=== PATIENT | female | born 2000 | race Caucasian/White ===

== ENCOUNTER → 2023-06-19 | Outpatient (CLI) | payer SELFPAY ==
[2023-06-24 21:06] LABS: Chlamydia By Nucleic Acid AMP Negative (Negative); Gonococcus By Nucleic Acid AMP Negative (Negative)
[2023-06-27 20:22] LABS: HPV Reflexed? NOT INDICATED
== END | disposition home or self-care (01) ==
PROVIDERS: Visit Provider Obstetrics & Gynecology
DX: Z34.90 Encounter for supervision of normal pregnancy, unspecified, unspecified trimester (principal)
CPT/HCPCS: 87086; 87491; 87591; 88175; G0145

== ENCOUNTER → 2023-09-17 | Outpatient (CLI) | payer SELFPAY ==
--- NOTE | 2023-09-17 15:37 | US_ITS ---
STUDY: SECOND AND THIRD TRIMESTER OBSTETRICAL ULTRASOUND REASON FOR EXAM: Female, 23 years old anatomy scan LMP: May 04, 2023. TECHNIQUE: Transabdominal and Transvaginal TECHNICAL QUALITY: Adequate. PRIOR ULTRASOUND: None. FINDINGS: There is a single intrauterine fetus. The fetus is in a cephalic presentation. There is demonstrated cardiac activity with a heart rate of 144 bpm. There is a normal amniotic fluid volume. The largest amniotic fluid pocket measures 3.7 cm x 8.1 cm. The amniotic fluid index (SACHIN) is within normal limits. The placenta is anterior in location and is not low lying. There are Grade 0 placental changes. The cervix measures 5.7 cm in length. The adnexal regions are not visualized. BIOMETRY: BPD: 4.8 cm: 20 weeks, 4 days HC: 17.84 sono: 20 weeks, 2 days AC: 14.46 cm: 19 weeks, 5 days FL: 3.17 cm: 19 weeks, 6 days CI: 78.7% FL/BPD: 65.8% FL/HC: FL/AC: 22% HC/AC: 1.23 age by current US: 20 weeks, 0 days. MARKELL by current US: February 04, 2024. Estimated weight: 322 grams, +/- 48 grams, 72 %. Age by LMP: 19 weeks, 3 days. MARKELL by LMP: February 08, 2024. ANATOMY: Gender: Male Cranium: Normal lateral ventricles. Normal choroid plexus. Normal cerebellum. Normal cisterna magna. Normal face, nose and lips. Chest: Normal 4-chamber heart. Abdomen/Pelvis: Normal diaphragm. Normal stomach. Normal abdominal wall. Normal cord insertion. Normal 3 vessel cord. Normal kidneys. Normal bladder. Spine: Limited assessment of the spine due to the position. Extremities: Normal bilateral upper extremities. Normal bilateral lower extremities. IMPRESSION: Single live intrauterine gestation with a mean gestational age of 20 weeks. Limited assessment of the spine due to the position. Follow-up recommended. Electronically Signed: Jay Lee MD at 15:01 EDT , STUDY: FIRST TRIMESTER OBSTETRICAL ULTRASOUND REASON FOR EXAM: Female, 23 years old. Cervical length measurement. LMP: May 04, 2023 TECHNIQUE: Transvaginal FINDINGS: Cervical length measures 5.7 cm. US/OB Anatomy w/ Transvaginal IMPRESSION: Cervical length measures 5.7 cm. Electronically Signed: Jay Lee MD at 15:02 EDT ,
== END | disposition home or self-care (01) ==
LOC: OPUS 15:35
PROVIDERS: Referring Provider Obstetrics & Gynecology; Visit Provider Obstetrics & Gynecology
DX: Z34.00 Encounter for supervision of normal first pregnancy, unspecified trimester (principal)
CPT/HCPCS: 76805; 76817

== ENCOUNTER → 2023-11-03 | Outpatient (CLI) | payer SELFPAY ==
[2023-11-03 08:18] LABS: Absolute Lymphocyte Count 1.45 X10^3/uL (0.83-4.51); Absolute Neutrophil Count 7.1 X10^3/uL (2.0-7.7); Basophil# 0.02 X10^3/uL; Basophil% 0.2 % (0-1); Eosinophil# 0.04 X10^3/uL; Eosinophils% 0.4 % (0-5); Hematocrit 33.2 % (37-47); Hemoglobin 11.2 g/dL (12.0-15.0); Lymphocyte # 1.45 X10^3/ul (0.83-4.51); Lymphocyte % 15.7 % (19-41); Mean Corp Hgb Conc 33.7 g/dL (32-36); Mean Corpuscular Hgb 31.8 pg (27.0-32.0); Mean Corpuscular Volume 94.3 fL (81-99); Mean Platelet Vol. 10.3 fl (6.2-12.0); Monocyte# 0.59 X10^3/uL; Monocyte% 6.4 % (0-10); NRBC Flagged by Analyzer 0 % (0-5); Neutrophil # 7.08 X10^3/uL (2.7-7.7); Neutrophil % 76.9 % (47-70); Platelet Count 222 K/mm3 (150-450); RBC Distribution Width CV 12.8 % (11.6-14.6); Red Blood Count 3.52 M/mm3 (4.2-5.4); White Blood Count 9.2 K/mm3 (4.4-11.0)
[2023-11-03 08:28] LABS: Glucose Challenge Gest 1H 50g 77 mg/dL (70-140)
[2023-11-03 09:07] LABS: HIV - WCH Non-Reactive (Nonreactive); Rubella IgG Reactive (Nonreactive); Syphilis Antibodies Non-reactive
== END | disposition home or self-care (01) ==
PROVIDERS: Registered Nurse; Referring Provider Obstetrics & Gynecology; Visit Provider Obstetrics & Gynecology
DX: Z34.90 Encounter for supervision of normal pregnancy, unspecified, unspecified trimester (principal)
CPT/HCPCS: 36415; 82950; 85025; 86703; 86762; 86780; 86850; 86900; 86901

== ENCOUNTER → 2023-11-13 | Outpatient (CLI) | payer SELFPAY ==
--- NOTE | 2023-11-13 17:55 | US_ITS ---
STUDY: SECOND AND THIRD TRIMESTER OBSTETRICAL ULTRASOUND - LIMITED REASON FOR EXAM: Female, 23 years old wellbeing -- Growth, Complete spinal views LMP: PRIOR ULTRASOUND: 09/17/2023 TECHNIQUE: Transabdominal TECHNICAL QUALITY: Adequate. FINDINGS: There is a single intrauterine fetus. The fetus is in a cephalic presentation. There is demonstrated cardiac activity with a heart rate of 150 bpm. There is increased amniotic fluid volume consistent with polyhydramnios. The largest amniotic fluid pocket measures 7.5 cm. The amniotic fluid index (SACHIN) is 25.5 cm. The placenta is anterior in location and is not low lying. There are Grade 1 placental changes. The cervix measures cm in length. BIOMETRY: BPD: 7.7 cm: 31 weeks, 0 days HC: 27.7 cm: 30 weeks, 2 days AC: 25.1 cm: 29 weeks, 2 days FL: 5.4 cm: 28 weeks, 5 days Age by LMP: 27 weeks, 4 days. MARKELL by LMP: 02/08/2024. age by prior US: weeks, days. MARKELL by prior US: . age by current US: 29 weeks, 4 days. MARKELL by current US: 01/25/2024. Estimated weight: 1394 grams, +/- 209 grams, 95 percentile. Gender: US/OB Limited With Biometrics IMPRESSION: 1. Living intrauterine of 29 weeks 4 days as described above. age is discordant from age by LMP of 27 weeks 4 days suggestive of incorrect dates or macrosomia. 2. Polyhydramnios with an amniotic fluid index of 25.5 cm. Electronically Signed: Jorge Jerome MD at 20:20 EDT ,
== END | disposition home or self-care (01) ==
LOC: OPUS 17:43
PROVIDERS: Referring Provider Nurse Practitioner Women's Health; Visit Provider Nurse Practitioner Women's Health
DX: Z34.90 Encounter for supervision of normal pregnancy, unspecified, unspecified trimester (principal)
CPT/HCPCS: 76816

== ENCOUNTER 2023-11-17 11:15 | Outpatient (CLI) | payer SELFPAY | END 2023-11-17 23:59 | disposition home or self-care (01) | LOC: PAVLAB 11:16 | PROVIDERS: Referring Provider Nurse Practitioner Women's Health; Visit Provider Nurse Practitioner Women's Health | DX: O40.9XX0 Polyhydramnios, unspecified trimester, not applicable or unspecified (principal); Z3A.00 Weeks of gestation of pregnancy not specified | CPT/HCPCS: 36415; 86850; 86900; 86901 ==

== ENCOUNTER → 2023-12-15 | Outpatient (CLI) | payer SELFPAY ==
--- NOTE | 2023-12-15 14:22 | US_ITS ---
STUDY: SECOND AND THIRD TRIMESTER OBSTETRICAL ULTRASOUND - LIMITED REASON FOR EXAM: Female, 23 years old, evaluate SACHIN. LMP: None PRIOR ULTRASOUND: Prior study dated: 11/13/2023 TECHNIQUE: Transabdominal TECHNICAL QUALITY: Adequate. FINDINGS: There is a single intrauterine fetus. The fetus is in a cephalic presentation. There is demonstrated cardiac activity with a heart rate of 135 bpm. There is a normal amniotic fluid volume. The largest amniotic fluid pocket measures 9.2 cm. The amniotic fluid index (SACHIN) is 13.3 cm. The placenta is anterior in location and is not low lying. There are Grade 1 placental changes. The cervix is not visualized. US/OB Limited (No Biometrics) IMPRESSION: 1. Single live intrauterine fetus in cephalic presentation. 2. Normal SACHIN measuring 15.3 cm. Electronically Signed: Dino Marley MD at 10:34 EDT ,
== END | disposition home or self-care (01) ==
PROVIDERS: Referring Provider Obstetrics & Gynecology; Visit Provider Obstetrics & Gynecology
DX: O40.9XX0 Polyhydramnios, unspecified trimester, not applicable or unspecified (principal); Z3A.00 Weeks of gestation of pregnancy not specified
CPT/HCPCS: 76815

== ENCOUNTER → 2023-12-31 | Outpatient (CLI) | payer SELFPAY | END | disposition home or self-care (01) | PROVIDERS: Referring Provider Nurse Practitioner Women's Health; Visit Provider Nurse Practitioner Women's Health | DX: R30.0 Dysuria (principal) | CPT/HCPCS: 87086 ==

== ENCOUNTER → 2024-01-09 | Outpatient (CLI) | payer SELFPAY ==
--- NOTE | 2024-01-09 14:39 | US_ITS ---
STUDY: SECOND AND THIRD TRIMESTER OBSTETRICAL ULTRASOUND - LIMITED REASON FOR EXAM: Female, 23 years old large for gestational age -- polyhyramnious LMP: 05/04/2023 PRIOR ULTRASOUND: 12/15/2023 TECHNIQUE: Transabdominal TECHNICAL QUALITY: Adequate. FINDINGS: There is a single intrauterine fetus. The fetus is in a cephalic presentation. There is demonstrated cardiac activity with a heart rate of 152 bpm. There is a normal amniotic fluid volume. The largest amniotic fluid pocket measures 5.8 cm. The amniotic fluid index (SACHIN) is 18.5 cm. The placenta is anterior in location and is not low lying. There are Grade 2 placental changes. The cervix measures 3.0 cm in length. BIOMETRY: BPD: 9.2 cm: 37 weeks, 3 days HC: 33.3 cm: 38 weeks, 0 days AC: 34.5 cm: 38 weeks, 3 days FL: 7.0 cm: 35 weeks, 5 days Age by LMP: 35 weeks, 5 days. MARKELL by LMP: 02/08/2024. age by prior US: weeks, days. MARKELL by prior US: . age by current US: 36 weeks, 6 days. MARKELL by current US: 01/31/2024. Estimated weight: 3288 grams, +/- 493 grams, 93 percentile. Gender: US/OB Limited With Biometrics IMPRESSION: Living intrauterine of 36 weeks 6 days as described above. Electronically Signed: Jorge Jerome MD at 19:24 EDT ,
== END | disposition home or self-care (01) ==
PROVIDERS: Referring Provider Obstetrics & Gynecology; Visit Provider Obstetrics & Gynecology
DX: O40.9XX0 Polyhydramnios, unspecified trimester, not applicable or unspecified (principal); Z3A.00 Weeks of gestation of pregnancy not specified
CPT/HCPCS: 76816

== ENCOUNTER → 2024-01-16 | Outpatient (CLI) | payer SELFPAY | END | disposition home or self-care (01) | PROVIDERS: Referring Provider Obstetrics & Gynecology; Visit Provider Obstetrics & Gynecology | DX: Z34.02 Encounter for supervision of normal first pregnancy, second trimester (principal); Z3A.00 Weeks of gestation of pregnancy not specified | CPT/HCPCS: 87081 ==

== ENCOUNTER → 2024-01-28 | Outpatient (CLI) | payer SELFPAY ==
[2024-01-28 22:54] LABS: Protein, Urine (Random) 44.6 mg/dL (<11.9); Protein:Creat Ratio 207 mg/g CRE (0-200)
== END | disposition home or self-care (01) ==
PROVIDERS: PCP Advanced Practice Midwife; Referring Provider Advanced Practice Midwife; Visit Provider Advanced Practice Midwife
DX: Z34.02 Encounter for supervision of normal first pregnancy, second trimester (principal)
CPT/HCPCS: 82570; 84156

== ENCOUNTER 2024-02-04 16:41 | Inpatient (IN) | payer SELFPAY ==
[2024-02-04] VITALS (46 sets, daily range): BP systolic 114–170; BP diastolic 57–87; PULSE 63–118; RESP 16–18; TEMP 36.5–37.2; O2SAT 94–99; BMI 25.9
[2024-02-04] MEDS: Lactated Ringers 1,000 ML 999 ML IV (17:10)
[2024-02-04 17:34] LABS: Absolute Lymphocyte Count 2.41 X10^3/uL (0.83-4.51); Absolute Neutrophil Count 7.2 X10^3/uL (2.0-7.7); Basophil# 0.02 X10^3/uL; Basophil% 0.2 % (0-1); Eosinophil# 0.02 X10^3/uL; Eosinophils% 0.2 % (0-5); Hematocrit 34.4 % (37-47); Hemoglobin 11.7 g/dL (12.0-15.0); Lymphocyte # 2.41 X10^3/ul (0.83-4.51); Lymphocyte % 23.2 % (19-41); Mean Corpuscular Hgb 30.2 pg (27.0-32.0); Mean Corpuscular Volume 88.7 fL (81-99); Mean Platelet Vol. 12.2 fl (6.2-12.0); Monocyte# 0.65 X10^3/uL; Monocyte% 6.3 % (0-10); NRBC Flagged by Analyzer 0 % (0-5); Neutrophil # 7.24 X10^3/uL (2.7-7.7); Neutrophil % 69.7 % (47-70); Platelet Count 160 K/mm3 (150-450); RBC Distribution Width CV 12.8 % (11.6-14.6); RBC Distribution Width SD 41.3 fl (35.1-43.9); Red Blood Count 3.88 M/mm3 (4.2-5.4); White Blood Count 10.4 K/mm3 (4.4-11.0)
[2024-02-04 18:07] LABS: Syphilis Antibodies Non-reactive
[2024-02-04] MEDS: Lactated Ringers 1,000 ML 200 ML IV (18:22)
[2024-02-04] MEDS: Ondansetron 4 MG/2 ML Vial IV (19:08)
[2024-02-04] MEDS: fentaNYL-bupivacaine (epidural) 100 ML BAG EPIDURAL (19:08)
--- NOTE | 2024-02-04 19:22 | HP.PCM.OB_ITS ---
HPI - General General Date of Admission: 02/04/24 HPI Narrative DUYEN OTT, is a 23 F who presents IAL regular ctx cervicla change to 6-7 cm with bloody show no lof. Maternal Data Information MARKELL Calculator Estimated Delivery Date Method Current WG Current Estimate 02/08/24 LMP (Certain) 39w 3d Other Estimates 02/10/24 Ultrasound #1 39w 1d PFSH PFSH Medical History (Updated 02/04/24 @ 19:[address] Deena Mullen MD) History of blood transfusion Home Medications ?Medication ?Instructions ?Recorded ?Last Taken ?Type ascorbic acid (vitamin C) 1,000 mg 1 g PO DAILY 06/03/23 02/03/24 08:00 History capsule 1 g cholecalciferol (vitamin D3) 125 125 mcg PO DAILY 06/03/23 02/03/24 08:00 History mcg (5,000 unit) tablet 125 mcg multivit-min no.71-iron fum 28 1 cap PO DAILY 06/03/23 02/01/24 08:00 History mg-folate no.1 1 mg-dha 300 mg 1 cap capsule (PNV-[place]) ondansetron 4 mg disintegrating 4 mg PO Q6H PRN nausea and 07/04/23 Unknown Rx tablet vomiting #30 tabs Allergy/AdvReac Type Severity Reaction Status Date / Time No Known Allergies Allergy Verified 02/04/24 12:52 Family History Grandmother Breast cancer, Onset Age: 50 maternal Aunt Breast cancer, Onset Age: 50 maternal Aunt Breast cancer, Onset Age: 50 maternal Mother Hypertension Also had gestational HTN Surgical History (Updated 02/04/24 @ 16:35 by Isha Trujillo) History of surgery H/O lateral meniscus repair of right knee Social History adopted: No household members: spouse current occupational status: employed current occupation: production graphic designer current occupational exposures/hazards: No pets and animals: No history of recent travel: Yes ([place]) out of state: Yes out of country: No sexually active: Yes Smoking Status: Never smoker alcohol intake: never substance use type: does not use well-balanced diet: daily or most days caffeine: Yes Type: coffee Number of servings: 1 eating out: 1-3 times/week during the past year weight has: remained stable what type of physical activity do you participate in: aerobics and weight training frequency: 3-4 times per week duration: 45-60 minutes/day sue/mormonism: Taoist seatbelt use: sometimes do you feel safe at home: Yes additional social history: Husbands Vargas- Sidbhavik History 1 Elective abortions Hx Para 0 Spontaneous abortions Hx # Term Pregnancies Ectopic pregnancies Hx # Pregnancies Multiple births # of living children Visit Details Expected Delivery Route/Plan Labor Preferences- CB/BF classes: encouraged labor support person: Vargas labor intervention preferences: [] pain management options preferred: epidural cut cord/dad catch: yes : yes PP control planned: discussed discussed possible routes of delivery and associated risks: [] special requests: Does not want Vit K inject pp and wants baby circumcised later after discharge Plans Covid status: declines Flu vaccine: declines Tdap vaccine: declines Rhogam: given 11/16 LARC form signed: yes movement and labor precautions reviewed. Problem list reviewed and updated with the most current plan of care details and appropriate orders placed. Relevant counseling for the gestational age provided. Continue routine care and follow up unless otherwise noted in visit notes/problem list details OB Flowsheet Initial Weight: Not Recorded Date -?-?-?-?-?-?-?-?-?-?-?-?- EGA Weight BP Urine Prot -?-?-?-?-?-?-?-?-?-?-?-?- Glucose FHR FuHt Pres Dilation -?-?-?-?-?-?-?-?-?-?-?-?- Effaced St Visit Note 06/19/23 -?-?-?-?-?-?--?-?-?-?-?-?- 6w 4d 147 lb 139/78 -?-?-?-?-?-?-?-?-?-?-?-?- 111 -?-?-?-?-?-?-?-?-?-?-?-?- JV- small CRL me asuring 6 weeks 2 days and consistent with LMP. RTO in 4 weeks. does not want NIPT. 07/18/23 -?-?-?-?-?-?-?-?-?-?-?-?- 10w 5d 141 lb Negative -?-?-?-?-?-?-?-?-?-?-?-?- Negative 170 -?-?-?-?-?-?-?-?-?-?-?-?- JV- still feelin g nauseated. recommend at least folic acid only if can not keep down pnv. wants anatomy scan at [facility]. 08/11/23 -?-?-?--?-?-?-?-?-?-?-?-?- 14w 1d 145 lb 8 oz 115/70 Nega tive -?-?-?-?-?-?-?-?-?-?-?-?- Negative 145 -?-?-?-?-?-?-?-?-?-?-?-?- JV- no lof, vagi nal bleeding, or cramping. no complaints. has anatomy scan scheduled 09/16. 09/12/23 -?-?-?-?-?-?-?-?-?-?-?-?- 18w 5d 151 lb 6 oz 108/68 Nega tive -?-?-?-?-?-?-?-?-?-?-?-?- Negative 140 -?-?-?-?-?-?-?-?-?-?-?-?- JV- pt is starti ng to feel movement now. Has us on 09/16. no complaints. 10/08/23 -?-?-?-?-?-?-?-?-?-?-?-?- 22w 3d 158 lb 123/75 Negative -?-?-?-?-?-?-?-?-?-?-?-?- Negative 140 -?-?-?-?-?-?-?-?-?-?-?-?- LC- no vb/ctx/lo f/ feeling movement. incomplete anatomy- spine views needed. has follow up. will do fresh test for glucose. plan hiv/syphilis 11/03/23 -?-?-?-?-?-?-?-?-?-?-?-?- 26w 1d 164 lb 2 oz 116/70 Nega tive -?-?-?-?-?-?-?-?-?-?-?-?- Negative 152 27 -?-?-?-?-?-?-?-?-?-?-?-?- MH-No VB, LOF. G ood FM. Needs to schedule US to complete anatomy. Did 28 wk labs today and normal. Will rpt T&S after 28 wk and get rhogam. Larc done. Declines tdap. 11/17/23 -?-?-?-?-?-?-?-?-?-?-?-?- 28w 1d 164 lb 8 oz 127/79 Nega tive -?-?-?-?-?-?-?--?-?-?-?-?- Negative 130 30 -?-?-?-?-?-?-?-?-?-?-?-?- SM- no vb lof go od fm no regular ctx discussed US findings, recommend repeat US, will call radiology to check spine views 12/02/23 -?-?-?-?-?-?-?-?-?-?-?-?- 30w 2d 167 lb 8 oz 126/74 Nega tive -?-?-?-?-?-?-?-?-?-?-?-?- Negative 150 33 -?-?-?--?-?-?-?-?-?-?-?-?- JV- pt has polyh ydramnios on last scan. has follow up on 12/14. no complaints other than pressure 12/18/23 -?-?-?-?-?-?-?-?-?-?-?-?- 32w 4d 172 lb 8 oz 109/67 Nega tive -?-?-?-?-?-?-?-?-?-?-?-?- Negative 155 32 -?-?-?-?-?-?-?-?-?-?-?-?- JV- SACHIN is now d own from 25 to 13 and patient denies LOF, vaginal bleeding, or dec fm. plan growth repeat at 36 weeks due to last scan showing >95th% 12/31/23 -?-?-?-?-?-?-?-?-?-?-?-?- 34w 3d 175 lb 8 oz 106/64 Nega tive -?-?-?-?-?-?-?-?-?-?-?-?- Negative 141 34 0 -?-?-?-?-?-?-?-?-?-?-?-?- MH-No VB, LOF. G ood Fm. Feeling cramping, increased pressure. UA and culture. 01/16/24 -?-?-?-?-?-?-?-?-?-?-?-?- 36w 5d 175 lb 8 oz 175 lb 14.4 oz 127/85 127/85 Negative -?-?-?-?-?-?-?-?-?-?-?-?- Negative 145 37 1 -?-?-?-?-?-?-?-?--?-?-?-?- JV- growth last week showed overall 93rd%. EFW at will be 8 bls 8 oz at 40 weeks. sachin is 18. 01/21/24 -?-?-?-?-?-?-?-?-?-?-?-?- 37w 3d 178 lb 122/79 Negative -?-?-?-?-?-?-?-?-?-?-?-?- Negative 135 37 Cephalic 2 -?-?-?-?-?-?-?-?-?-?-?-?- 30 -1 SM- no vb lof good fm no regular ctx 01/28/24 -?-?-?-?-?-?-?-?-?-?-?-?- 38w 3d 161 lb 8 oz 123/81 1+ -?-?-?-?-?-?-?-?-?-?-?-?- Negative 158 38 Cephalic 3 -?-?-?-?-?-?-?-?-?-?-?-?- 70 -1 KW- No vb/ lof/ctx. good fm. 1+ protein today. PC ratio sent. no PRESCOTT/BV/dizziness. labor precautions reviewed. Requesting membrane sweep next week if possible. 02/04/24 -?-?--?-?-?-?-?-?-?-?-?-?- 39w 3d 179 lb 131/79 Trace -?-?-?-?-?-?-?-?-?-?-?-?- Negative 135 38 Cephalic 4 .5 -?-?-?-?-?-?-?-?-?-?-?-?- 80 -1 kw- no vb/ lof. woke up with cramping/ctx this morning. doing well. labor precautions and membrane sweep today NST FHR Rate Baby A Baseline: 140 Variability:: Moderate Accelerations:: 15 x 15 Decelerations:: None NST Reactive:: Yes FHR Category:: Category I Uterine Activity:: q3-5 ROS Constitutional Constitutional: Reports systems reviewed and no addt'l complaints, except as documented ENT HEENT: Reports systems reviewed and no addt'l complaints, except as documented Cardiovascular Cardiovascular: Reports systems reviewed and no addt'l complaints, except as documented Respiratory/Chest Respiratory/Chest: Reports systems reviewed and no addt'l complaints, except as documented Gastrointestinal Gastrointestinal: Reports systems reviewed and no addt'l complaints, except as documented and nausea; Denies abdominal pain Genitourinary Genitourinary: Reports systems reviewed and no addt'l complaints, except as documented, contractions Details: present and frequency (regular ) and movement Details: present Musculoskeletal Musculoskeletal: Reports systems reviewed and no addt'l complaints, except as documented Integumentary Integumentary: Reports as per HPI Neurologic Neurologic: Reports systems reviewed and no addt'l complaints, except as documented Endocrine Endocrinology: Reports systems reviewed and no addt'l complaints, except as documented Vital Signs Vital Signs Vital Signs: 02/04/24 12:50 02/04/24 12:50 02/04/24 12:50 Temperature Temperature Source Temporal Pulse Rate 71 Respiratory Rate Blood Pressure 121/72 H BP Systolic 121 BP Diastolic 72 Pulse Ox 02/04/24 12:50 02/04/24 12:50 02/04/24 12:52 Temperature 99.0 F Temperature Source Pulse Rate 75 Respiratory Rate 16 Blood Pressure BP Systolic BP Diastolic Pulse Ox 02/04/24 12:52 02/04/24 17:29 02/04/24 17:29 Temperature Temperature Source Pulse Rate 76 Respiratory Rate Blood Pressure 117/68 BP Systolic 117 BP Diastolic 68 Pulse Ox 96 02/04/24 17:29 02/04/24 18:25 02/04/24 18:25 Temperature Temperature Source Pulse Rate 103 H Respiratory Rate Blood Pressure 126/86 H BP Systolic 126 BP Diastolic 86 Pulse Ox 97 02/04/24 18:25 02/04/24 18:25 02/04/24 18:25 Temperature 98.6 F Temperature Source Temporal Pulse Rate Respiratory Rate 16 Blood Pressure BP Systolic BP Diastolic Pulse Ox 02/04/24 18:26 02/04/24 18:26 02/04/24 18:30 Temperature Temperature Source Pulse Rate 109 H Respiratory Rate Blood Pressure 130/87 H BP Systolic 130 BP Diastolic 87 Pulse Ox 98 02/04/24 18:30 02/04/24 18:30 02/04/24 18:31 Temperature Temperature Source Pulse Rate 106 H 110 H Respiratory Rate 18 Blood Pressure BP Systolic BP Diastolic Pulse Ox 02/04/24 18:31 02/04/24 18:36 02/04/24 18:36 Temperature Temperature Source Pulse Rate 94 Respiratory Rate Blood Pressure BP Systolic BP Diastolic Pulse Ox 99 98 02/04/24 18:37 02/04/24 18:37 02/04/24 18:41 Temperature Temperature Source Pulse Rate 93 89 Respiratory Rate Blood Pressure 114/81 H BP Systolic 114 BP Diastolic 81 Pulse Ox 02/04/24 18:41 02/04/24 18:45 02/04/24 18:45 Temperature Temperature Source Pulse Rate 98 Respiratory Rate Blood Pressure 137/85 H BP Systolic 137 BP Diastolic 85 Pulse Ox 97 02/04/24 18:46 02/04/24 18:46 02/04/24 18:51 Temperature Temperature Source Pulse Rate 72 90 Respiratory Rate Blood Pressure BP Systolic BP Diastolic Pulse Ox 98 02/04/24 18:51 02/04/24 18:52 02/04/24 18:52 Temperature Temperature Source Pulse Rate 91 Respiratory Rate Blood Pressure 138/77 H BP Systolic 138 BP Diastolic 77 Pulse Ox 97 02/04/24 18:52 02/04/24 18:56 02/04/24 18:56 Temperature Temperature Source Pulse Rate 80 Respiratory Rate 18 Blood Pressure 142/69 H BP Systolic 142 BP Diastolic 69 Pulse Ox 02/04/24 18:56 02/04/24 18:56 02/04/24 19:00 Temperature Temperature Source Pulse Rate 77 Respiratory Rate 18 Blood Pressure BP Systolic BP Diastolic Pulse Ox 98 02/04/24 19:01 02/04/24 19:01 02/04/24 19:02 Temperature Temperature Source Pulse Rate 81 Respiratory Rate Blood Pressure 124/72 H BP Systolic 124 BP Diastolic 72 Pulse Ox 98 02/04/24 19:02 02/04/24 19:02 02/04/24 19:05 Temperature Temperature Source Pulse Rate 82 Respiratory Rate 18 Blood Pressure 124/74 H BP Systolic 124 BP Diastolic 74 Pulse Ox 02/04/24 19:05 02/04/24 19:06 02/04/24 19:06 Temperature Temperature Source Pulse Rate 65 72 Respiratory Rate Blood Pressure BP Systolic BP Diastolic Pulse Ox 99 02/04/24 19:11 02/04/24 19:11 02/04/24 19:11 Temperature Temperature Source Pulse Rate 71 Respiratory Rate Blood Pressure 122/77 H BP Systolic 122 BP Diastolic 77 Pulse Ox 96 02/04/24 19:12 02/04/24 19:12 02/04/24 19:16 Temperature Temperature Source Pulse Rate 77 Respiratory Rate Blood Pressure 134/68 H BP Systolic 134 BP Diastolic 68 Pulse Ox 94 02/04/24 19:16 02/04/24 19:16 02/04/24 19:20 Temperature Temperature Source Pulse Rate 92 Respiratory Rate Blood Pressure 121/69 H BP Systolic 121 BP Diastolic 69 Pulse Ox 99 02/04/24 19:20 Temperature Temperature Source Pulse Rate 81 Respiratory Rate Blood Pressure BP Systolic BP Diastolic Pulse Ox Weight Weight: 175 lb 7.807 oz Body Mass Index (BMI) 25.9 Physical Exam Const alert, oriented x3 and healthy appearing Constitutional Narrative: uncomfortable with contractions HEENT normocephalic and moist oral mucous membranes Head and Scalp: atraumatic Neck full ROM, no lymphadenopathy, supple and thyroid normal General: trachea midline Thyroid: thyroid normal Lymph Lymphatic: no lymphadenopathy noted Chest inspection of chest normal Resp normal respiratory effort Cardio regular rate GI normal to inspection, nondistended, normoactive bowel sounds, soft to palpation and non-tender Inspection: gravid external exam normal Bimanual Exam - Vag & Uterus: uterus non-tender Manual OB Exam: estimated gestational size appropriate, presentation cephalic, dilated, effaced and station Extremity normal to inspection General Extremity: Negative for edema Skin no rashes or lesions noted Neuro deep tendon reflexes 2+ bilaterally Motor Exam: strength 5/5 throughout and clonus absent Psych mental status grossly normal Labs Labs Labs: Blood Type A NEGATIVE Antibody Screen NEGATIVE Hct 34.4 % (37-47) L Hgb 11.7 g/dL (12.0-15.0) L Obstetrics Ultrasound Syphilis Total Ab Non-reactive Rubella IgG Antibody Reactive (Nonreactive) Chlamydia DNA (SAQIB) Negative (Negative) N.gonorrhoeae DNA (SAQIB) Negative (Negative) HIV 1&2 Antibody Non-Reactive (Nonreactive) Glucose 1 Hr 50 gm 77 mg/dL (70-140) Assessment & Plan (1) Supervision of normal first : QUALIFIERS: Trimester: second trimester Qualified Code(s): Z34.02 - Encounter for supervision of normal first , second trimester COMMENT: PRR at [place] , MARKELL 02/08/24, boy Vargas (2) Rh negative status during : QUALIFIERS: Trimester: second trimester Qualified Code(s): O26.892 - Other specified related conditions, second trimester; Z67.91 - Unspecified blood type, Rh negative COMMENT: rhogam 28 wk, pp and prn bleeding (3) : QUALIFIERS: Weeks of gestation: 39 weeks Qualified Code(s): Z3A.39 - 39 weeks gestation of COMMENT: Neg GBS discussed afp, genetic & carrier testing, declines Patient plans to decline Vit K for and do circumcision after hosp discharge. nl anatomy- needs spine fu views, normal spine (4) Active labor at term: PLAN: Plan Patient presents IAL, plan expectant management for , pitocin/AROM PRN if needed. Pain management: plans epidural. GBS neg. Management of any complications: none I have reviewed the [facility] and made any clinically relevant updates.
--- NOTE | 2024-02-04 20:25 | EX.PCM.OBRPT ---
Assessment & Plan (1) : QUALIFIERS: Weeks of gestation: 39 weeks Qualified Code(s): Z3A.39 - 39 weeks gestation of COMMENT: Neg GBS discussed afp, genetic & carrier testing, declines Patient plans to decline Vit K for infant and do circumcision after hosp discharge. nl anatomy- needs spine fu views, normal spine (2) Supervision of normal first : QUALIFIERS: Trimester: second trimester Qualified Code(s): Z34.02 - Encounter for supervision of normal first , second trimester COMMENT: PRR at [place] , MARKELL 02/08/24, boy Vargas (3) Rh negative status during : QUALIFIERS: Trimester: second trimester Qualified Code(s): O26.892 - Other specified related conditions, second trimester; Z67.91 - Unspecified blood type, Rh negative COMMENT: rhogam 28 wk, pp and prn bleeding (4) Active labor at term: (5) Vaginal delivery: COMMENT: SM IAL 39 boy Eris Maternal Data Information MARKELL Calculator Estimated Delivery Date Method Current WG Current Estimate 02/08/24 LMP (Certain) 39w 3d Other Estimates 02/10/24 Ultrasound #1 39w 1d Vaginal Delivery Operative Information Date of Procedure: 02/04/24 Pre-Operative Diagnosis: see a/p diagnoses Post-Operative Diagnosis: same Surgery / Procedure Performed: Spontaneous Vaginal Delivery Type of Anesthesia: Epidural Special Medications: none Estimated Blood Loss: 400 Fluids Replaced: crystalloid Findings Description of Procedure: Patient began pushing and delivered the head in the MELANI presentation. The head was delivered atraumatically . The anterior and posterior shoulders delivered without complication followed by the rest of the infant and the infant was placed on the maternal abdomen. Delayed cord clamping was employed for approximately 60 seconds. Cord was clamped and cut and gentle traction was applied to the cord and the placenta delivered spontaneously immediately following it was noted to be intact with three-vessel cord. The perineum and vagina were inspected and noted to have a second degree perineal laceration and left labial and left vaginal laceration which was repaired in the usual fashion with 3-0 vicryl rapide. . EBL was 400. Patient and tolerated delivery well. Amniotic Fluid Description: Clear Placental Delivery Description: Spontaneous Placenta Disposition: [facility] Cord Vessel Description: 3 Vessels Cord Entanglement: None Delayed Cord Clamping: Yes Post Vaginal Delivery Medications Given After Delivery: IV Pitocin Episiotomy Description: None Complication Complications: None Procedures Urinary/Genital [id number]: [id number] Vaginal Delivery [facility]
--- NOTE | 2024-02-04 20:26 | DCINST_ITS ---
Discharge Instructions Diet Discharge Diet: No restrictions Activity Discharge Activity: Return to Normal Activity, May Not Drive (while taking narcotic pain medications.) and May Shower May resume sexual activity in: 4-6 weeks Dressing / Incision Call your doctor if your incision/area has: Continuous Slow Oozing, Sudden Increased Bleeding, Increased Pain/ Swelling, Increased Redness and Foul Smelling Discharge Follow Up Care Please Follow Up With: Deena Mullen MD When: Call [phone] to make an appointment with your doctor in 6 weeks. If you had elevated blood pressure or 4th degree laceration, you will need to be seen in 2 weeks. Test Results: Test results from this visit will be discussed in further detail at your follow- up appointment, if applicable. Discharge Plan Admission Admit Date/Time: 02/04/24 16:41 Attending Provider: Deena Mullen Primary Care Provider: Leah Harrell Discharge Orders/Prescriptions Prescriptions: No Action [facility] 28-1-300 mg capsule 1 cap PO DAILY ascorbic acid (vitamin C) 1,000 mg capsule 1 g PO DAILY cholecalciferol (vitamin D3) 125 mcg (5,000 unit) tablet 125 mcg PO DAILY ondansetron 4 mg tablet,disintegrating 4 mg PO Q6H PRN (Reason: nausea and vomiting) Qty: 30 6RF Referrals / Follow Up: Leah Harrell CNM [Primary Care Provider] - Disposition Disposition (needs filled in before D/C Order can be placed): Home, Self Care
[2024-02-04] MEDS: Oxytocin 15 Units/NS 250ml 15 UNITS/250 ML IV.SOLN 334 UNITS IV (21:01)
[2024-02-04] MEDS: Oxytocin 15 Units/NS 250ml 15 UNITS/250 ML IV.SOLN 83 UNITS IV (21:31)
[2024-02-05] MEDS: Benzocaine/Lanolin/Aloe Vera 1 SPRAY EACH TOPICAL (02:06)
[2024-02-05] MEDS: Rho(D) Immune Globulin 300 MCG (1500 Unit) Syringe IV (04:25)
[2024-02-05] MEDS: 0.9% Saline Lock 10 ML Syringe IV (04:27)
[2024-02-05 04:29] VITALS: BP 113/78; PULSE 57; RESP 16; TEMP 36.5; O2SAT 97
[2024-02-05] MEDS: Acetaminophen 500 MG Tablet 1000 MG PO (04:35)
[2024-02-05 08:00] VITALS: BP 123/84; PULSE 58; RESP 16; TEMP 36.6; O2SAT 94
--- NOTE | 2024-02-05 08:11 | PN.OBGYN_ITS ---
Subjective Subjective Patient doing well without complaints. Tolerating PO. Ambulating and voiding without difficulty. Feeding well. Denies chest pain, shortness of breath, calf pain/swelling, fevers, chills, lightheadedness. Objective Data Objective Data Vital Signs: Vital Signs Temp Pulse Resp BP Pulse Ox O2 Del Method 97.7 F L 57 L 16 113/78 97 Room Air 02/05/24 04:29 02/05/24 04:29 02/05/24 04:29 02/05/24 04:29 02/05/24 04:29 02/05/24 04:29 Oxygen Delivery Method Room Air Weight: 175 lb 7.807 oz Body Mass Index (BMI) 25.9 Intake & Output: Intake and Output for Last 24 Hours 02/03/24 02/04/24 02/05/24 23:59 23:59 23:59 Intake Total 1693.67 / 1693.67 250 / 250 Output Total 200 / 200 600 / 600 Balance 1493.67 / 1493.67 -350 / -350 Lab / Micro Data 02/04/24 17:10 Labs: Laboratory Results - last 24 hr 02/04/24 17:10: WBC 10.4, RBC 3.88 L, Hgb 11.7 L, Hct 34.4 L, MCV 88.7, MCH 30.2, MCHC 34.0, RDW Std Deviation 41.3, RDW Coeff of Dwaine 12.8, Plt Count 160, M PV 12.2 H, Immature Gran % (Auto) 0.400, Neut % (Auto) 69.7, Lymph % (Auto) 23.2, [place] % (Auto) 6.3, Eos % (Auto) 0.2, Baso % (Auto) 0.2, Absolute Neuts (auto) 7.2, Absolute Lymphs (auto) 2.41, Nucleated RBC % 0, Syphilis Total Ab Non-reactive, Blood Type A NEGATIVE, Antibody Screen NEGATIVE 02/04/24 23:20: Screen NEGATIVE, Baby's Blood Type A POSITIVE, Baby's LITTLE NEGATIVE Physical Exam Const alert and oriented x3 HEENT normocephalic Eyes PERRL Neck full ROM Resp normal respiratory effort GI soft to palpation GI Narrative: FF but 3 above U. Normal bleeding. Psych mental status grossly normal Assessment & Plan (1) Vaginal delivery: COMMENT: SM IAL 39 boy Eris (2) Rh negative status during : QUALIFIERS: Trimester: second trimester Qualified Code(s): O 26.892 - Other specified related conditions, second trimester; Z67.91 - Unspecified blood type, Rh negative COMMENT: rhogam 28 wk, pp and prn bleeding PLAN: Plan s/p PPD # 1 1. routine post delivery care 2. breast feeding- support given 3. rh negative 4. rubella immune
[2024-02-05] MEDS: Naproxen 500 MG Tablet PO (09:23)
[2024-02-05] MEDS: Senna/Docusate Sodium 1 Tablet PO (09:27)
[2024-02-05 12:02] VITALS: BP 110/71; PULSE 62; RESP 16; TEMP 36.4; O2SAT 95
[2024-02-05 16:33] VITALS: BP 114/78; PULSE 64; RESP 16; TEMP 36.2; O2SAT 96
[2024-02-05 21:40] VITALS: BP 115/82; PULSE 60; RESP 16; TEMP 36.2; O2SAT 97
[2024-02-06 01:50] VITALS: BP 126/91; PULSE 65; RESP 17; TEMP 36.2; O2SAT 97
[2024-02-06 07:30] VITALS: BP 113/72; PULSE 67; RESP 18; TEMP 36.3; O2SAT 96
[2024-02-06] MEDS: Senna/Docusate Sodium 1 Tablet PO (08:47)
[2024-02-06] MEDS: Naproxen 500 MG Tablet PO (08:47)
--- NOTE | 2024-02-06 08:59 | PN.OBGYN_ITS ---
Subjective Subjective Patient doing well without complaints. Tolerating PO. Ambulating and voiding without difficulty. Feeding well. Denies chest pain, shortness of breath, calf pain/swelling, fevers, chills, lightheadedness. Objective Data Objective Data Vital Signs: Vital Signs Temp Pulse Resp BP Pulse Ox O2 Del Method 97.4 F L 67 18 113/72 96 Room Air 02/06/24 07:30 02/06/24 07:30 02/06/24 07:30 02/06/24 07:30 02/06/24 07:30 02/06/24 07:30 Oxygen Delivery Method Room Air Weight: 175 lb 7.807 oz Body Mass Index (BMI) 25.9 Intake & Output: Intake and Output for Last 24 Hours 02/04/24 02/05/24 02/06/24 23:59 23:59 23:59 Intake Total 1693.67 / 1693.67 250 / 250 Output Total 200 / 200 600 / 600 Balance 1493.67 / 1493.67 -350 / -350 Lab / Micro Data 02/04/24 17:10 Physical Exam Const alert and oriented x3 HEENT normocephalic Eyes PERRL Neck full ROM Resp normal respiratory effort GI soft to palpation GI Narrative: FF 1bu. Normal bleeding. Psych mental status grossly normal Assessment & Plan (1) Vaginal delivery: COMMENT: SM IAL 39 boy Eris (2) Rh negative status during : QUALIFIERS: Trimester: second trimester Qualified Code(s): O 26.892 - Other specified related conditions, second trimester; Z67.91 - Unspecified blood type, Rh negative COMMENT: rhogam 28 wk, pp and prn bleeding PLAN: Plan s/p PPD # 2 1. routine post delivery care 2. breast feeding- support given 3. rh positive 4. rubella immune 5. d/c home today
== END 2024-02-06 11:48 | disposition home or self-care (01) | DRG 807 ==
LOC: WPOUT 16:55 → WP 16:56
PROVIDERS: Admitting Provider Obstetrics & Gynecology; PCP Advanced Practice Midwife; Referring Provider Obstetrics & Gynecology; Visit Provider Obstetrics & Gynecology
DX: O70.1 Second degree perineal laceration during delivery (principal); Z37.0 Single live birth; O26.893 Other specified pregnancy related conditions, third trimester; Z3A.39 39 weeks gestation of pregnancy; Z67.91 Unspecified blood type, Rh negative
CPT/HCPCS: 59025; 59050; 85025; 85461; 86780; 86850; 86900; 86901; 90384; 99221; J7120; A4216; G0378; J2405; J2790; J2791

== ENCOUNTER → 2024-03-17 | Outpatient (CLI) | payer SELFPAY ==
--- NOTE | 2024-03-17 13:28 | US_ITS ---
STUDY: ULTRASOUND BREAST - RIGHT REASON FOR EXAM: Female, 23 years old. Mastitis. TECHNIQUE: Axial and longitudinal images of the RIGHT breast were performed with a high resolution ultrasound transducer. # OF IMAGES: 35 COMPARISON: None. FINDINGS: RIGHT Breast: The medial half of the right breast was examined with ultrasound. There is a 6.7 cm x 6.6 cm x 3.2 cm complex solid and cystic density. This most likely represents an abscess. Drainage is recommended. _ US/Breast Limited Unilateral IMPRESSION: 6.7 cm x 6.6 cm x 3.2 cm complex solid and cystic density. Abscess should be ruled out. Drainage recommended. ASSESSMENT CATEGORY: BIRADS Category 2: Benign. A letter regarding these results will be sent to the patient by the facility within 30 days. Electronically Signed: Jay Lee MD at 13:56 EDT ,
== END | disposition home or self-care (01) ==
PROVIDERS: Referring Provider Obstetrics & Gynecology; Visit Provider Obstetrics & Gynecology
DX: O91.23 Nonpurulent mastitis associated with lactation (principal); Z3A.00 Weeks of gestation of pregnancy not specified
CPT/HCPCS: 76642

== ENCOUNTER → 2024-03-18 | Outpatient (CLI) | payer SELFPAY | END | disposition home or self-care (01) | LOC: LABSPEC 15:08 | PROVIDERS: Referring Provider Physician Assistant; Visit Provider Physician Assistant | DX: N61.1 Abscess of the breast and nipple (principal) | CPT/HCPCS: 87070; 87075; 87077; 87186; 87205 ==